=== PATIENT | female | born 2000 | race Hispanic/Latino ===

== ENCOUNTER 2023-07-02 01:18 | Day surgery (SDC) | payer OTHER ==
[2023-07-02] MEDS ORDERED: hydrALAZINE 20 MG/ML VIAL SLOW IVP PRN (03:22)
[2023-07-02] MEDS: Calcium Carbonate 500 MG ChewTAB PO SCH (03:50)
[2023-07-02] MEDS ORDERED: Ondansetron ODT 4 MG TAB PO PRN (03:53)
[2023-07-02 04:17] VITALS: BMI 33.8
[2023-07-02 04:43] LABS: ALT (SGPT) 52 U/L (8-55); AST (SGOT) 63 U/L (5-34); Albumin 3.5 g/dL (3.5-5.0); Alkaline Phosphatase 254 U/L (40-110); Anion Gap 15 mmol/L (10-20); BUN (Urea Nitrogen) 10 mg/dL (7.0-18.7); Calc. Creatinine Clearance 181 mL/min (70-130); Calcium 9.6 mg/dL (7.8-10.44); Carbon Dioxide 22 mmol/L (22-29); Chloride 105 mmol/L (98-107); Estimated GFR 128; Globulin 3.6 g/dL (2.4-3.5); Glucose 94 mg/dL (70-105); Potassium 3.7 mmol/L (3.5-5.1); Protein, Total 7.1 g/dL (6.0-8.3); Sodium 138 mmol/L (136-145)
[2023-07-02 04:58] LABS: #Monocytes 0.4 10x3/uL (0.0-1.1); #Neutrophils 5.2 10x3/uL (1.5-8.4); %Basophils 0.4 % (0.0-2.0); %Eosinophils 0.6 % (0.0-6.0); %Monocytes 5.8 % (0.0-10.0); %Neutrophils 74.9 % (40.0-75.0); Mean Corpuscular HGB CONC 33.3 g/dL (32.0-36.0); Mean Corpuscular Hemoglobin 29.6 pg (27.0-33.0); Mean Corpuscular Volume 88.9 fl (81.6-98.3); Mean Platelet Volume 11.6 fl (7.4-10.4); Platelet Count 240 10x3/uL (150-450); RBC Distribution Width 13.1 % (11.5-14.5); Red Blood Cell (RBC) Count 3.71 10x6/uL (3.90-5.03); White Blood Cell (WBC) Count 6.9 10x3/uL (3.5-10.5)
[2023-07-02 05:04] LABS: Bilirubin Neg (Negative); Blood, Urine Negative (Negative); Clarity Clear (Clear); Glucose, Urine (Dipstick) Normal (Negative); Ketone, Urine Negative (Negative); Leukocyte Negative (Negative); Nitrite Negative (Negative); Protein, Urine (Dipstick) 15 mg/dl (Neg-Trace); Specific Gravity, Urine 1.005 (1.005-1.030)
[2023-07-02 05:17] LABS: Bacteria/HPF 1+ HPF (None Seen); CAUTI Indications for Culture Pregnancy; RBC/HPF 0-3 HPF (0-3); Squamous Epithelial 0-3 HPF (0-3); WBC/HPF 0-3 HPF (0-3)
[2023-07-02 05:18] LABS: Urine Culture Reflex Yes Yes
== END 2023-07-02 06:25 | disposition home or self-care (01) ==
LOC: CSHLD/OP 01:18
PROVIDERS: ATTEND Family Medicine
DX: O47.1 False labor at or after 37 completed weeks of gestation (principal); O99.891 Other specified diseases and conditions complicating pregnancy; R10.11 Right upper quadrant pain; O34.211 Maternal care for low transverse scar from previous cesarean delivery; O99.013 Anemia complicating pregnancy, third trimester; O99.213 Obesity complicating pregnancy, third trimester; Z98.890 Other specified postprocedural states; Z87.59 Personal history of other complications of pregnancy, childbirth and the puerperium; Z3A.37 37 weeks gestation of pregnancy
CPT/HCPCS: 76705; 80053; 81001; 85025; 87086; 99284

== ENCOUNTER 2023-07-12 05:28 | Inpatient (IN) | payer MEDICAID, OTHER ==
[2023-07-11 13:02] LABS: Hematocrit 34.7 % (34.9-44.5); Hemoglobin 11.7 g/dL (12.0-15.5); Platelet Count 216 10x3/uL (150-450)
[2023-07-11 13:43] LABS: Syphilis Antibody Nonreactive (Nonreactive); Syphilis Antibody Index 0.04 S/CO (<1.00 Non-Reactive)
[2023-07-11 13:45] LABS: HBSAg Index 0.21 S/CO (0-0.99); Hep B Surf Ag Non-Reactive S/CO (NonReactive)
[~2023-07-12 05:28] MED LIST: Bicitra 30 ML UDCUP PO PRN; Carboprost 250 MCG/ML AMP IM PRN; Diphenoxylate HCl/Atropine Tablet PO PRN; Methylergonovine 0.2 MG/ML VIAL IM PRN; Misoprostol 200 MCG TAB PR PRN; Ondansetron PF 4 MG/2 ML Vial IVP PRN; Oxytocin 30 units/NS 500 ML 500 ML IV SCH; Promethazine HCl 25 MG/ML VIAL IM PRN; Tranexamic Acid 1,000 MG/10 ML VIAL IVP PRN; hydrALAZINE 20 MG/ML VIAL SLOW IVP PRN
[2023-07-12 06:27] VITALS: BMI 33.6
[2023-07-12] MEDS: CEFAZOLIN 2 GM in Sodium Chloride 0.9% 100 ML IVPB SCH (07:17)
[2023-07-12] MEDS: Famotidine/PF 20 mg/2ml Vial SLOW IVP PRN (07:17)
[2023-07-12] MEDS: Lactated Ringer's 1,000 ML IV SCH (07:18)
[2023-07-12] MEDS ORDERED: Naloxone HCl 0.4 mg/ml Vial IVP PRN ×2 (09:04)
[2023-07-12] MEDS ORDERED: diphenhydrAMINE 50 MG/ML VIAL IVP PRN (09:04)
[2023-07-12] MEDS ORDERED: Meperidine HCl/PF 25 MG (1 mL) VIAL SLOW IVP PRN (09:04)
[2023-07-12] MEDS ORDERED: Naloxone HCl 0.4 mg/ml Vial IV PRN (09:04)
[2023-07-12] MEDS ORDERED: Ondansetron PF 4 MG/2 ML Vial IVP PRN ×2 (09:04)
[2023-07-12] MEDS ORDERED: Promethazine HCl 25 MG SUPP PR PRN (09:04)
[2023-07-12] MEDS ORDERED: Moisturizing Cream (Eucerin) 113 GM JAR TOP PRN (09:04)
[2023-07-12] MEDS ORDERED: Communication Order-Pharmacy FS SCH (09:15)
[2023-07-12] MEDS: fentaNYL 50 mcg/mL 1 mL Vial SLOW IVP PRN (10:08)
[2023-07-12] MEDS: Ketorolac Tromethamine 30 MG (1 mL) VIAL IVP SCH (11:06)
[2023-07-12] MEDS: Promethazine HCl 25 MG/ML VIAL IM PRN (11:07)
[2023-07-12] MEDS: Dexamethasone 4 mg/ml Vial ONE (11:09)
[2023-07-12] MEDS: Ondansetron PF 4 MG/2 ML Vial ONE (11:09)
[2023-07-12] MEDS: Oxytocin 10 UNITS/ML VIAL ONE (11:09)
[2023-07-12] MEDS: PHENYLEPHRINE-NS 100 MCG/ML 10 ML SYRINGE ONE ×2 (11:10)
[2023-07-12] MEDS: Morphine PF 10 MG/10 ML VIAL ONE (11:10)
[2023-07-12] MEDS ORDERED: Lanolin Ointment 7 GM TUBE TOP PRN (14:19)
[2023-07-12] MEDS ORDERED: hydrALAZINE 20 MG/ML VIAL SLOW IVP PRN (14:19)
[2023-07-12] MEDS ORDERED: Bisacodyl 10 MG SUPP PR PRN (14:19)
[2023-07-12] MEDS: Ondansetron PF 4 MG/2 ML Vial IVP PRN (14:42)
[2023-07-12] MEDS: Ferrous Sulfate 325 MG TAB PO SCH ×2 (15:22→21:05)
[2023-07-12] MEDS: Prenatal Vitamin 1 TAB PO SCH (15:22)
[2023-07-12] MEDS: Docusate 100 MG CAP PO SCH ×2 (15:22→21:04)
[2023-07-12] MEDS: Ketorolac Tromethamine 30 MG (1 mL) VIAL IVP PRN (17:59)
[2023-07-12] MEDS: diphenhydrAMINE 25 MG CAP PO PRN (17:59)
[2023-07-12] MEDS ORDERED: Acetaminophen 650 MG/20.3 ML UDCUP PO PRN (18:52)
[2023-07-12] MEDS: HYDROcodone/Acetaminophen 5/325 mg Tablet PO PRN (22:50)
[2023-07-13 04:25] LABS: #Monocytes 0.6 10x3/uL (0.0-1.1); #Neutrophils 4.6 10x3/uL (1.5-8.4); %Basophils 0.3 % (0.0-2.0); %Eosinophils 0.3 % (0.0-6.0); %Lymphocytes 30.1 % (18.0-47.0); %Monocytes 7.6 % (0.0-10.0); %Neutrophils 61.4 % (40.0-75.0); Hematocrit 25.3 % (34.9-44.5); Hemoglobin 8.5 g/dL (12.0-15.5); Mean Corpuscular HGB CONC 33.6 g/dL (32.0-36.0); Mean Corpuscular Hemoglobin 30.2 pg (27.0-33.0); Mean Platelet Volume 12.1 fl (7.4-10.4); Platelet Count 186 10x3/uL (150-450); RBC Distribution Width 13.2 % (11.5-14.5); Red Blood Cell (RBC) Count 2.81 10x6/uL (3.90-5.03); White Blood Cell (WBC) Count 7.5 10x3/uL (3.5-10.5)
[2023-07-13 04:27] LABS: ALT (SGPT) 26 U/L (8-55); AST (SGOT) 28 U/L (5-34); Albumin 2.8 g/dL (3.5-5.0); Alkaline Phosphatase 178 U/L (40-110); Anion Gap 13 mmol/L (10-20); BUN (Urea Nitrogen) 8 mg/dL (7.0-18.7); Bilirubin, Total 0.5 mg/dL (0.2-1.2); Calc. Creatinine Clearance 180 mL/min (70-130); Calcium 8.7 mg/dL (7.8-10.44); Carbon Dioxide 22 mmol/L (22-29); Chloride 104 mmol/L (98-107); Estimated GFR 128; Globulin 2.7 g/dL (2.4-3.5); Glucose 73 mg/dL (70-105); Protein, Total 5.5 g/dL (6.0-8.3); Sodium 135 mmol/L (136-145)
[2023-07-13] MEDS: Boostrix 0.5 ML (Tdap) VIAL (>/=7 yrs of age) IM ONE (07:41)
[2023-07-13] MEDS: Simethicone Chewable 80 MG TAB PO PRN (08:21)
[2023-07-13] MEDS: Prenatal Vitamin 1 TAB PO SCH (08:21)
[2023-07-13] MEDS: HYDROcodone/Acetaminophen 5/325 mg Tablet PO PRN (12:06)
[2023-07-13] MEDS: Ibuprofen 800 MG TAB PO SCH (14:43)
[2023-07-14] MEDS: Polyethylene Glycol 3350 17 GM Packet PO SCH (10:21)
[2023-07-14 20:40] VITALS: TEMP 98.1
[2023-07-15] MEDS: Polyethylene Glycol 3350 17 GM Packet PO SCH (07:52)
[2023-07-15 07:59] VITALS: BP 107/58
== END 2023-07-15 15:30 | disposition home or self-care (01) | DRG 787 ==
LOC: CSHLD 05:28 → CSHPED 11:40
PROVIDERS: ADMIT Family Medicine; ATTEND Family Medicine
PROC: 10D00Z1 Extraction of Products of Conception, Low, Open Approach (ICD-10-PCS; principal; 2023-07-13)
PROC: 3E0334Z Introduction of Serum, Toxoid and Vaccine into Peripheral Vein, Percutaneous Approach (ICD-10-PCS; 2023-07-15)
DX: O34.211 Maternal care for low transverse scar from previous cesarean delivery (principal); D62 Acute posthemorrhagic anemia; Z3A.39 39 weeks gestation of pregnancy; Z37.0 Single live birth; O99.62 Diseases of the digestive system complicating childbirth; K80.20 Calculus of gallbladder without cholecystitis without obstruction; K76.0 Fatty (change of) liver, not elsewhere classified; N73.6 Female pelvic peritoneal adhesions (postinfective); N32.89 Other specified disorders of bladder; O90.81 Anemia of the puerperium; Z87.81 Personal history of (healed) traumatic fracture; O26.893 Other specified pregnancy related conditions, third trimester; Z67.41 Type O blood, Rh negative
CPT/HCPCS: 36415; 51702; 80053; 85014; 85018; 85025; 85049; 85461; 86780; 86850; 86900; 86901; 87340; 90384; 96372; J1100; J1885; J2274; J2405; J2550; J2590; J3010; J3490; J7120; S0028